=== PATIENT | female | born 1985 | race Caucasian/White ===

== ENCOUNTER 2017-11-19 09:02 | Emergency (ER) | payer OTHER ==
[~2017-11-19] VITALS: Ht 157.5 cm; Wt 80.3 kg
[~2017-11-19 09:02] MED LIST: ADVAIR DISKU 11 UNIT INH; ADVAIR DISKUS 21 DSK INH; ADVAIR DISKUS 21 DSK PO; ALBUTEROL 3 ML3 ML INH; ALBUTEROL0.09 MG/A1 INH; MEDROL DOSEPAK1 PAC PO; METHADONE H5 MG/5 ML PO; PREDNISONE10 MG PO; PROVENTIL0.09 MG/A1 INH; PROVENTIL0.09 MG/Ac PO; ROBITUSSIN W/CO10 ML PO; SINGULAIR10 MG PO; TESSALON PERLE100 MG PO; ZITHROMAX Z-PA250 M1 PO
[2017-11-19 09:36] VITALS: BP 108/58
[2017-11-19] MEDS ORDERED: TRAMADOL HCL50 M1 PO (10:17)
[2017-11-19] MEDS ORDERED: NAPROSYN500 M1 PO (10:17)
[2017-11-19] MEDS ORDERED: CYCLOBENZAPRINE10 M1 PO (10:17)
[2017-11-19] MEDS ORDERED: MEDROL4 M2 PO (10:17)
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
== END 2017-11-19 10:35 ==
LOC: ERH 09:02
DX: S29.012A Strain of muscle and tendon of back wall of thorax, initial encounter (principal); X50.0XXA Overexertion from strenuous movement or load, initial encounter; Y93.H2 Activity, gardening and landscaping
CPT/HCPCS: 96372; J1885